=== PATIENT | female | born 1960 | race Two or more races ===

== ENCOUNTER 2023-09-04 20:53 | Observation (INO) | payer OTHER ==
[~2023-09-04] VITALS: Ht 165.1 cm; Wt 136.1 kg
[2023-09-04 20:53] VITALS: BP 142/88; PULSE 90; RESP 16; TEMP 98.2; O2SAT 98
[2023-09-04 22:08] LABS: BASOPHILS % (AUTO) 0.6 % (0.0-2.0); EOSINOPHILS # (AUTO) 0.1 K/uL (0-0.4); EOSINOPHILS % (AUTO) 1.6 % (0.0-4.0); HEMOGLOBIN 13.4 g/dL (12.0-16.0); LYMPHOCYTES # (AUTO) 2.2 K/uL (2.5-16.5); LYMPHOCYTES % (AUTO) 32.1 % (20.5-51.1); MEAN CORPUSCULAR HEMOGLOBIN 32 pg (27-31); MEAN CORPUSCULAR HGB CONC 35 g/dL (33-37); MEAN CORPUSCULAR VOLUME 90.5 fL (80-94); MONOCYTES # (AUTO) 0.6 K/uL (0.8-1.0); MONOCYTES % (AUTO) 8.5 % (1.7-9.3); NEUTROPHILS % (AUTO) 57.2 % (42.2-75.2); PLATELET COUNT (AUTO) 212 K/uL (140-450); RED BLOOD CELL COUNT(AUTO) 4.21 MIL/uL (4.20-5.40); RED CELL DISTRIBUTION WIDTH 13.9 % (11.6-13.7); WHITE BLOOD COUNT (AUTO) 6.9 K/uL (4.8-10.8)
[2023-09-04 22:16] LABS: ANION GAP 8.9 (8-16); CALCIUM 9.2 mg/dL (8.5-10.1); CARBON DIOXIDE 33.8 mmol/L (21-32); CREATININE 1.2 mg/dL (0.6-1.3); POTASSIUM 3.7 mmol/L (3.5-5.1)
[2023-09-04 23:00] VITALS: O2SAT 96
[2023-09-04 23:27] LABS: FLU A ANTIGEN negative (NEGATIVE); FLU B ANTIGEN NEGATIVE (NEGATIVE)
[2023-09-05] MEDS ORDERED: ONDANSETRON 4 MG/2 ML VIAL IVP PRN (02:45)
[2023-09-05] MEDS ORDERED: ACETAMINOPHEN 325 MG TAB PO PRN (02:45)
[2023-09-05] MEDS ORDERED: MORPHINE SULFATE 2 MG/ML SYR IVP PRN (02:45)
[2023-09-05 03:10] VITALS: O2SAT 97
[2023-09-05] MEDS ORDERED: DIVA250T PO (03:37)
[2023-09-05] MEDS ORDERED: CARV3.12 PO (03:37)
[2023-09-05] MEDS ORDERED: [UNRECOGNIZED DRUG - CODE] PO (03:37)
[2023-09-05] MEDS ORDERED: METF-346 PO (03:37)
[2023-09-05] MEDS ORDERED: FURO-570 PO ×2 (03:37→15:07)
[2023-09-05] MEDS ORDERED: ATOR20TA PO (03:37)
[2023-09-05 05:29] VITALS: O2SAT 100
[2023-09-05 07:28] VITALS: O2SAT 100
[2023-09-05] MEDS ORDERED: INSULIN LISPRO SLIDING SCALE 100 UNITS/ML VIAL SUBQ PRN (08:25)
[2023-09-05] MEDS ORDERED: POTASSIUM CHLORIDE 10 MEQ TABER PO PRN (08:25)
[2023-09-05] MEDS ORDERED: MAGNESIUM OXIDE 400 MG TAB PO PRN (08:25)
[2023-09-05] MEDS ORDERED: MAG SULF 2000 MG/WATER PREMIX 50 ML IV PRN (08:25)
[2023-09-05] MEDS ORDERED: KCL 20 MEQ IN 100 mL PREMIX 200 ML IV PRN (08:25)
[2023-09-05] MEDS ORDERED: DEXTROSE 50% 50 ML SYR IVP PRN (08:25)
[2023-09-05 08:30] VITALS: BP 124/54; PULSE 67; PULSE 77; RESP 18; TEMP 98.6; O2SAT 98
[2023-09-05] MEDS ORDERED: ATORVASTATIN 20 MG TAB PO SCH (09:00)
[2023-09-05] MEDS ORDERED: PANTOPRAZOLE 40 MG TABEC PO SCH (09:00)
[2023-09-05] MEDS ORDERED: carvediloL 3.125 MG TAB PO SCH (09:00)
[2023-09-05] MEDS ORDERED: FUROSEMIDE 40 MG/4 ML VIAL IVP SCH (09:00)
[2023-09-05] MEDS ORDERED: ECOTRIN 81 MG TABEC PO SCH (09:00)
[2023-09-05] MEDS ORDERED: BLOOD GLUCOSE MONITORING 1 DEV DEV FS SCH (11:30)
[2023-09-05 12:00] VITALS: BP 133/63; PULSE 68; PULSE 72; RESP 18; TEMP 97.3; O2SAT 95
[2023-09-05] MEDS ORDERED: OLANZapine 2.5 MG TAB PO SCH (13:00)
[2023-09-05 14:33] VITALS: O2SAT 98
[2023-09-05] MEDS ORDERED: DIVALPROEX SODIUM PO SCH (21:00)
[2023-09-05] MEDS ORDERED: APIXABAN 2.5 MG TAB PO SCH (21:00)
[2023-09-05] MEDS ORDERED: DIVALPROEX 250 MG TABEC PO SCH (21:00)
[2023-09-06] MEDS ORDERED: FUROSEMIDE 40 MG TAB PO SCH (09:00)
[2023-09-06] MEDS ORDERED: ATORVASTATIN 20 MG TAB PO SCH (09:00)
== END 2023-09-05 16:20 | disposition home or self-care (01) ==
LOC: MED 20:53 → MTU 09-05 02:46
PROVIDERS: ADMIT Hospitalist; ATTEND Hospitalist
DX: I50.33 Acute on chronic diastolic (congestive) heart failure (principal); Z20.822 Contact with and (suspected) exposure to COVID-19; E11.9 Type 2 diabetes mellitus without complications; E66.01 Morbid (severe) obesity due to excess calories; E78.5 Hyperlipidemia, unspecified; I73.9 Peripheral vascular disease, unspecified; Z79.899 Other long term (current) drug therapy; Z86.718 Personal history of other venous thrombosis and embolism; Z79.01 Long term (current) use of anticoagulants; Z90.710 Acquired absence of both cervix and uterus
CPT/HCPCS: 36415; 71045; 71275; 80048; 82948; 83880; 84484; 85025; 87081; 87426; 87804; 93005; 93307; 94760; 96372; 99285; G0378; J1815; J1940; Q9967; C8929